=== PATIENT | female | born 1970 | race Caucasian/White ===

== ENCOUNTER 2021-05-06 13:14 | Emergency (ER) | payer BC ==
[~2021-05-06 13:14] MED LIST: DELSYM30 MG/5 ML PO; FLONASE 0.05% N16 GM; IBU800 MG PO; KEFLEX CAP 500500 MG PO; MEDROL DOSEPAK 24 MG PO; NORCO 5-325 TA1 EACH PO; PREDNISONE 50 M50 MG PO; PYRIDIUM200 MG PO; ROBAXIN-750750 MG PO; ZITHROMAX250 MG PO
== END 2021-05-06 15:17 | disposition home or self-care (01) ==
LOC: ER1 13:14
DX: U07.1 COVID-19 (principal); I10 Essential (primary) hypertension; Z88.0 Allergy status to penicillin; F17.210 Nicotine dependence, cigarettes, uncomplicated; Z90.710 Acquired absence of both cervix and uterus
CPT/HCPCS: 87081; 87880; 99284; U0002

== ENCOUNTER 2021-05-16 08:40 | Emergency (ER) | payer BC | END 2021-05-16 11:45 | disposition home or self-care (01) | LOC: ER1 08:40 | DX: U07.1 COVID-19 (principal); J02.9 Acute pharyngitis, unspecified; F17.200 Nicotine dependence, unspecified, uncomplicated; Z88.0 Allergy status to penicillin; Z90.710 Acquired absence of both cervix and uterus | CPT/HCPCS: 87081; 87880; 99283; U0002 ==

== ENCOUNTER 2022-05-13 09:00 | Emergency (ER) | payer BC | END 2022-05-13 11:19 | disposition home or self-care (01) | LOC: ER1 09:00 | DX: U07.1 COVID-19 (principal); I10 Essential (primary) hypertension; F17.200 Nicotine dependence, unspecified, uncomplicated | CPT/HCPCS: 99284; U0002 ==

== ENCOUNTER 2022-06-17 10:37 | Emergency (ER) | payer BC ==
[2022-06-17] MEDS ORDERED: CLINDAMYCIN HC300 MG PO (11:03)
[2022-06-17] MEDS ORDERED: BACTROBAN OINT22 GM EXT (11:03)
[2022-06-17] MEDS ORDERED: IBUPROFEN600 MG PO (11:03)
== END 2022-06-17 11:22 | disposition home or self-care (01) ==
LOC: ER1 10:37
DX: L03.116 Cellulitis of left lower limb (principal); I10 Essential (primary) hypertension; F17.210 Nicotine dependence, cigarettes, uncomplicated; Z88.0 Allergy status to penicillin
CPT/HCPCS: 99283